=== PATIENT | male | born 1970 | race Caucasian/White ===

== ENCOUNTER 2021-04-07 18:47 | Outpatient (CLI) | payer OTHER, SELFPAY ==
--- NOTE | ~2021-04-07 | XR_ITS ---
XR chest 2V DATE: 04/07/2021 19:08 INDICATION: Cough, shortness of breath, right-sided chest pain TECHNIQUE: PA and lateral views COMPARISON: 09/19/2014 2 view chest FINDINGS: Normal heart size. No hilar or mediastinal enlargement. Moderate bilateral hyperinflation. No pulmonary infiltrate or consolidation, pleural effusion or pulm onary vascular congestion or pneumothorax. IMPRESSION: No active cardiopulmonary disease Reviewed, dictated and finalized at location A.
== END 2021-04-07 18:48 | disposition home or self-care (01) ==
LOC: ANHIMG 18:54
PROVIDERS: PCP Internal Medicine Endocrinology, Diabetes & Metabolism; Visit Provider Radiology Diagnostic Radiology
DX: R05.9 Cough, unspecified (principal); R06.02 Shortness of breath; R07.89 Other chest pain
CPT/HCPCS: 71046